=== PATIENT | male | born 1995 | race Caucasian/White ===

== ENCOUNTER 2016-10-27 11:06 | Emergency (ER) | payer SELFPAY ==
[~2016-10-27] VITALS: Ht 177.8 cm; Wt 63.5 kg
[2016-10-27] MEDS ORDERED: ONDANSETRON HCL/PF 4 MG/2 ML VIAL IVP ONE (11:30)
[2016-10-27] MEDS ORDERED: IV NS 0.9% 1,000 ML BAG IV ONE ×2 (11:30)
[2016-10-27] MEDS ORDERED: IV SET PRIMARY PUMP SET 1 EA INFUS.SET MC ONE ×2 (11:41→12:15)
[2016-10-27] MEDS ORDERED: IV NS 0.9% 2,000 ML ONE (11:41)
[2016-10-27] MEDS ORDERED: ONDANSETRON HCL/PF 4 MG/2 ML VIAL ONE (11:41)
[2016-10-27 11:44] LABS: BASOPHILS % (AUTO) 0.5 % (0.0-2.0); DIFF TOTAL % 100 %; EOSINOPHILS % (AUTO) 0.6 % (0.0-6.0); HEMATOCRIT 46 % (39-51); HEMOGLOBIN 15.5 g/dL (13.5-17.5); LYMPHOCYTES # (AUTO) 2.5 /CMM (0.8-4.8); LYMPHOCYTES % (AUTO) 39.5 % (20.0-44.0); MEAN CORPUSCULAR HEMOGLOBIN 28 PG (26.0-33.0); MEAN CORPUSCULAR HGB CONC 33 g/dl (31.0-36.0); MEAN CORPUSCULAR VOLUME 85 fL (80-96); MONOCYTES # (AUTO) 0.4 /CMM (0.1-1.30); MONOCYTES % (AUTO) 6.3 % (2.0-12.0); NEUTROPHILS # (AUTO) 3.4 /CMM (1.8-8.9); NEUTROPHILS % (AUTO) 53.1 % (43.0-81.0); PLATELET COUNT (AUTO) 265 /CMM (150-450); RED BLOOD CELL COUNT(AUTO) 5.49 MIL/uL (4.5-6.0); WHITE BLOOD COUNT (AUTO) 6.3 K/uL (4.3-11.0)
[2016-10-27 11:58] LABS: ALBUMIN 4.3 g/dL (3.4-5.0); BILIRUBIN,DIRECT 0.2 mg/dL (0.0-0.2); BILIRUBIN,TOTAL 1.1 mg/dL (0.2-1.0); CREATININE 1.2 mg/dL (0.6-1.3); INDIRECT BILIRUBIN 0.9 mg/dL (0.0-1.1); POTASSIUM 3.3 mmol/L (3.5-5.1)
[2016-10-27] MEDS ORDERED: INSU100V27 SQ (12:00)
[2016-10-27] MEDS ORDERED: BLOO-668 IN (12:00)
[2016-10-27 12:04] LABS: CALCIUM, SERUM 8.5 mg/dL (8.5-10.1)
[2016-10-27 12:10] LABS: KETONES,URINE >=160 (NEGATIVE); LEUKOCYTE ESTERASE ,URINE Negative (NEGATIVE); PH,URINE 5.5 (5.0-8.0)
[2016-10-27 12:11] LABS: ABG BASE EXCESS -12.6 mmol/L; ABG HCO3 14.5 mmol/L; ABG PCO2 37.2 mmHg (35.0-45.0); ABG PH 7.208 (7.350-7.450); ABG PO2 17.9 mmHg (75.0-100.0); ABG TOTAL HEMOGLOBIN 15.8 G/dL (13.5-18.0); O2Hb 31.2 % (94.0-97.0)
[2016-10-27] MEDS ORDERED: POTASSIUM CHLORIDE 20 MEQ TAB.PRT.SR PO ONE ×2 (12:14→12:30)
[2016-10-27 12:16] LABS: LACTIC ACID 0.9 mmol/L (0.4-2.0)
[2016-10-27] MEDS ORDERED: POTASSIUM CL. PREMIX PERIPHER. 50 ML IV SCH (12:30)
[2016-10-27 12:33] LABS: ADD UA MICROSCOPIC YES
[2016-10-27 12:35] LABS: ADD URINE CULTURE NO; RBC,URINE 0-2 /HPF (0-2); WBC,URINE 0-2 /HPF (0-3)
[2016-10-27] MEDS ORDERED: INSULIN REGULAR, HUMAN 100 UNIT in IV NS 0.9% 99 ML IV PRN ×2 (13:00)
[2016-10-27 13:24] VITALS: BP 144/76
== END 2016-10-27 13:26 | disposition left against medical advice (07) ==
LOC: ER 11:09
DX: E10.10 Type 1 diabetes mellitus with ketoacidosis without coma (principal); E87.6 Hypokalemia; F17.200 Nicotine dependence, unspecified, uncomplicated; Z79.4 Long term (current) use of insulin
CPT/HCPCS: 36415; 36600; 80048; 80076; 81001; 82962; 83605; 83690; 85025; 87040 ×2; 87081; 93005; 96361; 96374; 99291; A4606; J2405; J3480 ×2; J7030; Z7610; 81000-TC